=== PATIENT | female | born 1960 | race Hispanic/Latino ===

== ENCOUNTER → 2017-05-04 | Outpatient (CLI) | payer BC ==
[~2017-05-04] MED LIST: ACCURETIC 101 TABLET PO; ADVIL200 MG PO; ASPIRIN325 MG PO; COLACE100 MG PO; DOK PLUS TABLE1 EACH PO; DRISDOL50000 UNIT PO; ENDOCET 5-3251 EACH PO; FISH OIL 1,0001 EAC7 PO; FLEXERIL10 MG PO; GEMFIBROZIL600 MG PO; GLIMEPIRIDE4 MG PO; GLUCOTROL XL5 MG PO; HEPARIN SO5000 UNITS SC; LANTUS100 UNIT/1 SQ; LEVEMIR100 UNIT/2 SC; LIDODERM 5% P1 PATCH TD; LOVASTATIN20 MG PO; LOVENOX40 MG/0.4 SC; LYRICA75 MG PO; METAXALONE800 MG PO; METFORMIN HCL500 MG PO; MOTRIN400 MG PO; OXYCODONE-APAP1 EACH PO; POLYETHYLENE GL17 GM PO; SKELAXIN800 MG PO; VITAMIN B-6100 MG PO; ZESTORETIC 20-1 EAC1 PO; ZOFRAN4 MG PO; ZUPLENZ4 MG PO; Zithromax PO
== END | disposition home or self-care (01) ==
LOC: CDC 14:35
DX: Z01.810 Encounter for preprocedural cardiovascular examination (principal); J98.4 Other disorders of lung; R94.31 Abnormal electrocardiogram [ECG] [EKG]
CPT/HCPCS: 93000

== ENCOUNTER 2017-05-15 07:11 | Day surgery (SDC) | payer BC ==
[~2017-05-15] VITALS: Ht 154.9 cm; Wt 72.5 kg
[~2017-05-15 07:11] MED LIST changes: +AMARYL4 MG PO; +FENOFIBRATE160 M1 PO; +NOVOLOG PE100 UNITS/ SC; +REGLAN10 MG PO
[2017-05-15 07:42] LABS: POINT-OF-CARE METER ID UU14174212
[2017-05-15 08:04] VITALS: BP 157/74
[2017-05-15 08:15] LABS: ANION GAP 7 MEQ/L (2-14); CHLORIDE 106 MEQ/L (99-109); GFR ESTIMATE (CALCULATED) 33 mL/min/; GLUCOSE 92 mg/dL (70-99); POTASSIUM 4.8 MEQ/L (3.7-5.4); SAMPLE HEMOLYSIS CHECK 0; SAMPLE ICTERIC CHECK 0; SAMPLE LIPEMIA CHECK 0; SODIUM 138 MEQ/L (136-147); UREA NITROGEN (BUN) 29 mg/dL (9-23)
[2017-05-15] MEDS ORDERED: MOTRIN600 MG PO (10:27)
[2017-05-15] MEDS ORDERED: NORCO 5/3251 TABLET PO (10:27)
[2017-05-15 10:39] LABS: POINT-OF-CARE METER ID UU13113675
[2017-05-15 10:52] VITALS: BP 120/60
[2017-05-15 11:52] VITALS: BP 144/63
== END 2017-05-15 12:01 | disposition home or self-care (01) ==
LOC: SDC
PROVIDERS: Obstetrics & Gynecology
PROC: 0UB98ZX Excision of Uterus, Via Natural or Artificial Opening Endoscopic, Diagnostic (ICD-10-PCS; principal; 2017-05-15)
DX: N84.0 Polyp of corpus uteri (principal); N95.0 Postmenopausal bleeding; Q51.2 Other doubling of uterus; Q52.129 Other and unspecified longitudinal vaginal septum; I10 Essential (primary) hypertension; E11.40 Type 2 diabetes mellitus with diabetic neuropathy, unspecified; E78.00 Pure hypercholesterolemia, unspecified; Z79.4 Long term (current) use of insulin
CPT/HCPCS: 80048; 82948; 88305; J1100; J1885; J2250; J2405; J3010; J7120